=== PATIENT | female | born 1955 | race Caucasian/White ===

== ENCOUNTER 2025-07-10 17:50 | Emergency (ER) | payer BC ==
[~2025-07-10] VITALS: Ht 162.6 cm; Wt 41.2 kg
[2025-07-10 18:00] VITALS: BP 121/55; PULSE 69; RESP 16; O2SAT 97
[2025-07-10] MEDS ORDERED: CEPH-585 PO (19:33)
--- NOTE | 2025-07-10 19:34 | Physician Documentation ---
History of Present Illness ~ Chief Complaint: Bite-insect Stated Complaint: SPIDER BITE Time Seen by MD: 18:17 HPI Patient is seen today with complaints of some kind of insect bite on her abdomen in the right side that she noticed yesterday morning and has become more red and swollen and painful in his now tracking of right side of her abdomen within erythematous streak. Patient denies any fevers or chills in his no other concern or complaint at this time. She denies any chest pain or shortness of breath or abdominal pain or nausea, vomiting, diarrhea. Medication Reconciliation Allergies: Coded Allergies: No Known Allergies (Unverified , 07/10/25) Review of Systems Constitutional: Denies: chills, fever, weakness Eyes: Denies: pain, blurred vision ENT: Denies: ear pain, nose pain, throat pain, mouth pain Respiratory: Denies: cough, shortness of breath Cardiovascular: Denies: chest pain, palpitations Gastrointestinal: Denies: abdominal pain, nausea, vomiting Genitourinary: Denies: burning, dysuria Female Genitalia: Denies: vaginal discharge, pelvic pain Neurological: Denies: headache, dizziness Musculoskeletal: Denies: pain, swelling Integumentary: Denies: rash, lesions Allergic/Immunologic: Denies: hives, itching Hematologic/Lymphatic: Denies: no symptoms reported Psychiatric: Denies: depression, anxiety Physical Exam Vital Signs: Temperature: 98.4, Source: Temporal, Heart Rate: 69, Respiratory Rate: 16, BP: 121/55, Pulse Oximetry: 97, Weight: 41.200 Oxygen Flow Rate: 0 Physical Exam General: Awake and Alert, no acute distress. HEENT: Conjunctiva pink, Sclera clear, Mucus Membranes moist. Neck: Supple without masses and tenderness. Resp: Unlabored. Lungs clear to auscultation bilaterally. Heart: Regular Rate and rhythm, normal S1 and S2 without murmur, rub or gallop. Abdomen: Soft and non tender no organomegaly Extremities: No cyanosis,clubbing or edema. Skin: Patient on exam has small quarter-size area of erythema and induration was centralized bite joseph with streaking up the right side of the abdomen with a erythematous streak. Patient has minimal tenderness to palpation in that area. Progress Results/Orders Results/Orders Completed Orders - MARIANELA CRUZ PAC Cephalexin Capsule (Keflex Capsule) (07/10/25 19:26) Vital Signs 07/10/25 18:00 Temp 98.4 Pulse 69 Resp 16 B/P (MAP) 121/55 Pulse Ox 97 O2 Flow Rate 0 Medical Decision Making Findings Patient is seen today with complaints of some kind of insect bite on her abdomen in the right side that she noticed yesterday morning and has become more red and swollen and painful in his now tracking of right side of her abdomen within erythematous streak. Patient denies any fevers or chills in his no other concern or complaint at this time. She denies any chest pain or shortness of breath or abdominal pain or nausea, vomiting, diarrhea. Patient was given dose of Keflex 500 mg one tab by mouth in the ED tonight. Prescription of Keflex 500 mg one tab 3 times a day to be taken by mouth for 10 days sent to patient's pharmacy. Patient will follow up with primary care in 2- 5 days if no better as needed sooner. Return to ED with any worsening, concerning or changing symptoms. Departure Disposition: 01 HOME / SELF CARE / HOMELESS Impression: Primary Impression: Cellulitis Qualified Codes: L03.311 - Cellulitis of abdominal wall Condition: Stable Discharge Instructions: Cellulitis, Adult Additional Instructions: Patient was given dose of Keflex 500 mg one tab by mouth in the ED tonight. Prescription of Keflex 500 mg one tab 3 times a day to be taken by mouth for 10 days sent to patient's pharmacy. Patient will follow up with primary care in 2- 5 days if no better as needed sooner. Return to ED with any worsening, concerning or changing symptoms. Referrals: NO PRIMARY CARE PROVIDER (PCP) Prescriptions Cephalexin*Monohydrate* (Keflex*) 500 Mg Capsule 1 CAP PO Q8H for 10 Days, #30 CAP Prov: MARIANELA CRUZ 07/10/25 Signature Scribe Signature: No scribe Attestation: No scribe MARIANELA CRUZ PAC Jul 10, 2025 19:34
[2025-07-10 19:39] VITALS: TEMP 98.4
== END 2025-07-10 19:44 | disposition home or self-care (01) ==
LOC: ER 17:50
DX: L03.311 Cellulitis of abdominal wall (principal)
CPT/HCPCS: 99283